=== PATIENT | male | born 1965 | race Caucasian/White ===

== ENCOUNTER 2021-03-30 16:25 | Emergency (ER) | payer OTHER ==
[~2021-03-30] VITALS: Ht 170.2 cm; Wt 65.8 kg
[2021-03-30] MEDS ORDERED: SENNA8.8 MG/5 M PO (16:41)
[2021-03-30] MEDS ORDERED: MIRALAX119 GM PO (16:42)
[2021-03-30] MEDS ORDERED: BISACODYL10 MG RECTAL (16:42)
[2021-03-30] MEDS ORDERED: BENTYL 10 MG CA10 MG PO (16:43)
[2021-03-30] MEDS ORDERED: ZOLPIDEM TARTRA10 MG PO (16:43)
[2021-03-30] MEDS ORDERED: FLOMAX0.4 MG PO (16:43)
[2021-03-30] MEDS ORDERED: NEXIUM40 MG PO (16:43)
[2021-03-30] MEDS ORDERED: GABAPENTIN100 MG PO (16:44)
[2021-03-30] MEDS ORDERED: HYDROXYZINE PAM25 M1 PO (16:44)
[2021-03-30] MEDS ORDERED: DRIZALMA SPRINK30 MG PO (16:44)
[2021-03-30] MEDS ORDERED: FLEXERIL PO (16:44)
[2021-03-30] MEDS ORDERED: XANAX 0.25 MG0.25 MG PO (16:45)
[2021-03-30 16:51] LABS: ABSOLUTE LYMPHOCYTES 1.6 thou/uL (0.8-5.3); ABSOLUTE MONOCYTES 0.6 thou/uL (0.0-1.2); BASOPHILS 0.4 %; EOSINOPHILS 0.3 %; HEMATOCRIT 43.6 % (42.0-52.0); HEMOGLOBIN 14.9 gm/dL (14.0-18.0); LYMPHOCYTES 25.8 %; MCH 31.5 pg (26.0-34.0); MCHC 34.2 g/dL (28.0-37.0); MCV 92.2 fL (80.0-100.0); MONOCYTES 9.9 %; MPV 8.1 fl. (7.2-11.1); NUCLEATED RBCS 0 /100WBC; PLATELET COUNT* 260 thou/uL (150-400); POLYS 63.6 %; RBC 4.72 mil/uL (4.50-6.00); WBC 6.3 thou/uL (4.0-11.0)
[2021-03-30 16:59] LABS: CALCIUM 9.4 mg/dL (8.5-10.1); POTASSIUM 4.2 mmol/L (3.5-5.1)
[2021-03-30 17:13] LABS: ALBUMIN 4.3 g/dL (3.4-5.0); CK-MB MASS 0.9 ng/mL (<0.5-3.6); MAGNESIUM 2.1 mg/dL (1.8-2.4); TOTAL BILIRUBIN 0.6 mg/dL (<0.1-1.0); TOTAL PROTEIN 7.5 g/dL (6.4-8.2)
[2021-03-30 17:40] VITALS: BP 132/86
--- NOTE | 2021-03-31 10:13 | EKG ---
[place] [address] ELECTROCARDIOGRAM REPORT Name: ILDACHERISE Room: [facility]#: [id number] Admission: 03/30/21 Attend Phys: Discharge: 03/30/21 Date of : 63 Date of Service: 03/30/21 1621 Report #: [id number] THIS REPORT FOR: //name// [facility] ED Test Date: 2021-03-30 Test Time: 16:21:54 Pat Name: CHERISE GONSALES Department: Room: Gender: [employer]: Cb : 1965 Requested By: Patricio Fong Order Number: [id number] MD: Saji Thomas Measurements Intervals [place] Rate: 84 P: 56 AK: 152 QRS: 73 QRSD: 95 T: 45 QT: 334 QTc: 395 Interpretive Statements Sinus rhythm Probable left atrial enlargement ST elevation suggests acute pericarditis No previous ECG available for comparison Electronically Signed On 03-31-2021 10:13:21 CDT by Saji Thomas [email or web address] <ELECTRONICALLY SIGNED> By: Blayne Thomas MD, [facility] 03/31/21 1013 1621 1621 Blayne Thomas MD, [facility] /EPI
== END 2021-03-30 17:41 | disposition home or self-care (01) ==
LOC: M.ERS 16:25
PROVIDERS: Family Medicine
DX: R07.89 Other chest pain (principal); F41.0 Panic disorder [episodic paroxysmal anxiety]; Z98.890 Other specified postprocedural states; Z79.1 Long term (current) use of non-steroidal anti-inflammatories (NSAID); Z79.891 Long term (current) use of opiate analgesic; Z79.899 Other long term (current) drug therapy; Z91.041 Radiographic dye allergy status